=== PATIENT | male | born 1960 | race Caucasian/White ===

== ENCOUNTER 2022-01-04 03:08 | Day surgery (SDC) | payer BC, SELFPAY ==
[2021-12-15 10:56] VITALS: BMI 45.7
[2022-01-04 06:25] VITALS: BMI 49.8
[2022-01-04 06:29] VITALS: BP 178/89; PULSE 74; RESP 18; TEMP 36.4; O2SAT 98
[2022-01-04] MEDS: LACTATED RINGERS 1,000 ML 150 ML IV CONT (06:44)
--- NOTE | 2022-01-04 06:45 | P.PNAN_ITS ---
Anes - Initial Pre Proc Eval Procedure: Operation Date: 01/04/22 07:30 Proposed Procedures p Screening Colonoscopy - Alex Pavon MD Date/Time: 01/04/22 06:45 Surgeon: Alex Pavon MD Pre Op Diagnosis: hx of colon polyps, neoplasm screening Patient Data Age: 61 Gender: M Height: 1.73 m Weight: 148.9 kg Last Vital Signs Temp 36.4 C L 01/04/22 06:29 Pulse 74 01/04/22 06:29 Resp 18 01/04/22 06:29 BP 178/89 H 01/04/22 06:29 Pulse Ox 98 01/04/22 06:29 O2 Del Method Room Air 01/04/22 06:29 Allergies Allergy/AdvReac Type Severity Reaction Status Date / Time No Known Allergies Allergy Verified 01/04/22 06:24 Home Medications Medication Instructions Recorded Confirmed Type lisinopril 20 1 tablet PO DAILY 12/15/21 01/04/22 History mg-hydrochlorothiazide 25 mg tablet Patient hx anesthesia problems: none Family hx anesthesia problems: none Results Review: All pre-operative results and documents have been reviewed as part of the pre- operative evaluation. [facility] Past Medical History Medical History (Updated 01/04/22 @ 06:46 by Saul Carter DO) Hypertension Social History Social History Smoking status: Former smoker Tobacco type: cigarettes Substance use type: does not use Living arrangements: with family Spiritual care concerns: No Anes - Eval Final PreProcedure Day of Procedure 01/04/22 06:45 Patient weight: morbidly obese Heart: regular rate and rhythm Lungs: clear to auscultation Airway: Mallampati scale class III Neurological: alert and oriented Last oral intake: >/= 8 hours ASA classification: III Emergent: no Anesthetic plan: proceed Anesthesia type and monitoring: general GIVS and standard monitoring Results Review: All pre-operative results and documents have been reviewed as part of the pre- operative evaluation. Informed Consent: The patient's anesthetic plan and its attendant risks and benefits were discussed with the patient/family/POA. Questions were solicited and answers provided to the satisfaction of the patient/family/POA.
--- NOTE | 2022-01-04 07:55 | PM.IMHP ---
H&P: HPI History of Present Illness Date/Time: 01/04/22 07:55 Chief Complaint: History of colon polyps Narrative: this is a 61-year-old white male patient who has a history of large colon polyps in the past. Patient presents today for surveillance colonoscopy. Patient reports his current weight appetite bowel movements are normal. He denies abdominal pain. He has had no bleeding. Family history is noncontributory. Review of Systems Review of Systems: Review of systems noncontributory. [facility] Past Medical History Medical History (Updated 01/04/22 @ 07:57 by Alex Pavon MD) Hypertension Social History Social History Smoking status: Former smoker Tobacco type: cigarettes Substance use type: does not use Living arrangements: with family Spiritual care concerns: No Meds Home Medications and Allergies Home Medications Medication Instructions Recorded Confirmed Type lisinopril 20 1 tablet PO DAILY 12/15/21 01/04/22 History mg-hydrochlorothiazide 25 mg tablet Allergies Allergy/AdvReac Type Severity Reaction Status Date / Time No Known Allergies Allergy Verified 01/04/22 06:24 Vital Signs Vital Signs - 24 hr 01/04/22 06:29 Temperature 97.5 F L Pulse Rate 74 Respiratory Rate 18 Blood Pressure 178/89 H Pulse Oximetry 98 Oxygen Delivery Room Air Exam Narrative: Physical exam reveals patient be alert. Vital signs stable. HEENT exam is unremarkable. Patient is anicteric. Lungs are clear to auscultation and percussion. Heart is without murmur or extra sounds. Abdominal exam Is obese. bowel sounds are present soft nontender with no organomegaly. Digital external rectal exam is normal. Assessment and Plan Assessment and plan (1) History of colon polyps: Code(s): Z86.010 - Personal history of colonic polyps Status: Acute Assessment and Plan: Patient has a history of large colon polyps in the past. Plan for colonoscopy now and at 2-3 year intervals in the future. Further recommendations will be given after endoscopy. (2) Obesity (BMI 30.0-34.9): Code(s): E66.9 - Obesity, unspecified Status: Acute Assessment and Plan: Weight loss with calorie restriction increase activity strongly encouraged.
[2022-01-04 07:58] VITALS: BP 129/68; PULSE 68; RESP 18; O2SAT 100
[2022-01-04 08:08] VITALS: BP 136/67; PULSE 66; RESP 16; O2SAT 98
[2022-01-04 08:18] VITALS: BP 141/76; PULSE 64; RESP 13; O2SAT 98
== END 2022-01-04 08:28 | disposition home or self-care (01) ==
PROVIDERS: PCP Family Medicine; Visit Provider Internal Medicine Gastroenterology
PROC: 0DJD8ZZ Inspection of Lower Intestinal Tract, Via Natural or Artificial Opening Endoscopic (ICD-10-PCS; CPT 45378; principal; 2022-01-04 07:30)
DX: Z12.11 Encounter for screening for malignant neoplasm of colon (principal); K57.30 Diverticulosis of large intestine without perforation or abscess without bleeding; D12.3 Benign neoplasm of transverse colon; K63.5 Polyp of colon; I10 Essential (primary) hypertension; E66.01 Morbid (severe) obesity due to excess calories; Z68.42 Body mass index [BMI] 45.0-49.9, adult
CPT/HCPCS: 45385; 88305; J2704; J7120

== ENCOUNTER 2023-12-31 08:03 | Emergency (ER) | payer BC, SELFPAY ==
[2023-12-31 08:09] VITALS: BP 146/80; PULSE 87; RESP 16; TEMP 36.8; O2SAT 99
[2023-12-31 08:22] LABS: EDUAAPPEAR Clear; EDUABILI Negative; EDUABLOOD Trace; EDUACOLOR1 Yellow; EDUAGLUCOSE Negative; EDUAKETONE 1+; EDUALEUKO Negative; EDUANITRATE Negative; EDUAPROTEIN 2+
--- NOTE | 2023-12-31 08:35 | ED.ABDPAIN ---
HPI - Abdominal Pain General Chief Complaint: Abdominal Pain Stated Complaint: Stomach Pain Time Seen by Provider: 12/31/23 08:16 Source: patient and RN notes reviewed Mode of arrival: ambulatory Limitations: no limitations History of Present Illness HPI narrative: Patient presents today complaining of mid to upper abdominal pain that started approximately 12 hours prior to arrival. Describes the pain as constant. Pain is worse when sitting or lying down and is better when he is up walking around. Denies nausea, vomiting, diarrhea, fever, urinary symptoms. Last bowel movement was 2 days ago. Currently rates his pain 7/10. Patient has tried some antacids without relief. Related Data Home Medications Medication Instructions Recorded Confirmed aspirin 81 mg tablet,delayed 81 mg PO DAILY 07/01/22 12/31/23 release (Adult Aspirin Regimen) flaxseed oil 1,000 mg capsule 1,000 mg PO DAILY 07/01/22 12/31/23 yyuzjtsq-aiia-iujtp acid 400 tablet PO 07/01/22 07/11/23 mcg-lycopene 600 mcg-ginkgo 120 mg tablet (One Daily For Men 50 Plus Adv) inulin 2 gram chewable tablet 4 g PO DAILY 07/11/23 07/11/23 (Fiber Gummies) Allergies Allergy/AdvReac Type Severity Reaction Status Date / Time No Known Allergies Allergy Verified 12/31/23 08:27 Review of Systems Review of Systems: CONSTITUTIONAL: Denies body aches, fever, chills, or sweats. EYES: Denies visual changes, redness, or discharge. ENT: Denies rhinorrhea, congestion, sore throat, or otalgia. CARDIOVASCULAR: Denies chest pain, palpitations, or edema. RESPIRATORY: Denies cough or dyspnea. GASTROINTESTINAL: Denies nausea, vomiting, or diarrhea.+ abdominal pain GENITOURINARY: Denies dysuria or hematuria. SKIN: Denies rash, itching, or wounds. MUSCULOSKELETAL: Denies back pain, joint pain, or myalgia. NEUROLOGIC: Denies headache, numbness, tingling, or weakness. PSYCH: Denies depression or anxiety. [facility] Past Medical History Medical History Hypertension Morbid (severe) obesity due to excess calories Prediabetes Family History Family History Father , ager 68, of complications of pneumonia. Had laryngeal cancer. Heart disease Diabetes mellitus Mother , age 62 of lung cancer No problems noted. Grandparent , in his 80s of heart disease No problems noted. Social History Social History Smoking status: Former smoker Tobacco type: cigarettes Alcohol intake: never Substance use: never Substance use type: does not use Lack of Transportation: No Lack of Food: Never True Current Housing: I Have Housing Concerned About Future Housing: No Difficulty Paying Gas/Electric Bills: No Difficulty Paying for Meds: No Currently Unemployed: No Education: Trade/Vocational Certificate Difficulty w/ Childcare or Family Care: No Living arrangements: with family Occupation/Education: occupation Gender identity (if verbalized by the patient): Male Sexual Orientation (if Verbalized by the Patient): Straight or Heterosexual Spiritual care concerns: No Comments At time of signature, I have reviewed and agree with nursing past medical, surgical, social and family history unless otherwise noted. Please see nursing chart for further information. There is no relevant family history pertinent to the presenting complaint Exam Narrative: GENERAL: Well-appearing, well-nourished, and in no acute distress. HEAD: Normocephalic, atraumatic. EYES: EOMI. No redness or drainage. Conjunctivae normal. ENT: Mucous membranes pink and moist. NECK: Normal AROM. CHEST: No respiratory distress. Clear to auscultation. HEART: Regular rate and rhythm. No murmur appreciated. Normal peripheral pulses. ABDOMEN:
== END 2023-12-31 08:51 | disposition short-term general hospital (02) ==
PROVIDERS: Emergency Provider Nurse Practitioner; PCP Family Medicine
DX: R10.10 Upper abdominal pain, unspecified (principal); Z87.891 Personal history of nicotine dependence; I10 Essential (primary) hypertension; R73.03 Prediabetes; E66.01 Morbid (severe) obesity due to excess calories; Z68.42 Body mass index [BMI] 45.0-49.9, adult; Z79.82 Long term (current) use of aspirin
CPT/HCPCS: 81003; 99213; G0463

== ENCOUNTER 2023-12-31 08:58 | Emergency (ER) | payer BC, SELFPAY ==
[2023-12-31] VITALS (17 sets, daily range): BP systolic 139–201; BP diastolic 76–97; PULSE 78–90; RESP 14–19; TEMP 36.6; O2SAT 93–100
--- NOTE | ~2023-12-31 | US_ITS ---
EXAMINATION: US right upper quadrant DATE: 12/31/2023 09:52 INDICATION: Abdominal pain. TECHNIQUE: Multiple grayscale and Doppler ultrasound images of the abdomen were obtained. COMPARISON: None FINDINGS: The visualized portions of the head and body of the pancreas are normal. There is diffuse h epatic steatosis. There is normal flow in main portal vein. The gallbladder is normal in size and con tains sludge. No visible gallstones or gallbladder wall thickening. There is no sonographic Mehta's sign. The common duct is mildly dilated to 7 mm. IMPRESSION: 1. Diffuse hepatic steatosis. 2. Mildly dilated common duct. Reviewed, dictated and finalized at location A.
--- NOTE | ~2023-12-31 | CT_ITS ---
EXAMINATION: CT abdomen pelvis w con DATE: 12/31/2023 10:35 INDICATION: Right abdominal pain. TECHNIQUE: Computed tomography (CT) of the abdomen and pelvis was performed with 100 mL Omnipaque 350 intravenous contrast. Automated exposure control and iterative reconstruction technique were employe d. The dose-length product was 1692.10 mGy-cm. COMPARISON: None. FINDINGS: The visualized portions of the lung bases demonstrate mild atelectasis. There is a pneumato elizabeth in left lower lobe. No pleural effusion. The heart size is normal. There are coronary artery ortiz cifications. No pericardial effusion. There is a 13 mm cyst in the liver. The gallbladder is distende d with surrounding fat stranding. The common duct is normal in caliber. The spleen, pancreas, adrenal glands, and left kidney are normal. There is a 4 mm stone in right kidney. The prostate is mildly en larged. There is diverticulosis of the colon without evidence of diverticulitis. The appendix is norm al. There are no dilated loops of bowel. There are no pathologically enlarged lymph nodes. Aortic ath erosclerosis is noted. There is no free intraperitoneal fluid. There is an umbilical hernia containin g fat. There is mild thoracic spondylosis and moderate lumbar spondylosis. IMPRESSION: 1. Acute cholecystitis. 2. Umbilical hernia containing fat. Reviewed, dictated and finalized at location A.
[2023-12-31] MEDS: ONDANSETRON INJ 4 MG/2 ML VIAL IV PUSH (09:23)
[2023-12-31] MEDS: MORPHINE SULFATE (*CRX) 4 MG/ML INJ IV PUSH (09:23)
[2023-12-31 09:39] LABS: Basophils Percent Auto 0.3 % (0.2-1.2); Eosinophils Percent Auto 0.1 % (0-4.4); Hematocrit 41.4 % (42.0-52.0); Hemoglobin 13.7 g/dL (14.0-18.0); Immature Granulocyte Absolute 0.07 K/mm3 (0.00-0.031); Immature Granulocyte Percent A 0.5 % (0-0.5); Lymphocytes Absolute Auto 1.07 K/mm3 (0.9-3.2); Lymphocytes Percent Auto 7.8 % (18.3-44.2); Mean Corpuscular HGB Conc 33.1 g/dl (32-36); Mean Corpuscular Hemoglobin 28.6 pg (26-34); Mean Corpuscular Volume 86.4 fl (80-100); Mean Platelet Volume 10.4 fl (7.4-10.4); Monocytes Absolute Auto 1.2 K/mm3 (0.1-0.6); Monocytes Percent Auto 8.4 % (2.6-8.5); Neutrophils Absolute Auto 11.4 K/mm3 (1.3-6.7); Neutrophils Percent Auto 82.9 % (45.5-73.1); Platelet Count Result 241 k/mm3 (150-375); Red Blood Count 4.79 M/mm3 (4.6-6.20); Red Cell Distribution Width 13.2 % (11.5-14.5); White Blood Count 13.8 K/mm3 (4.5-10.0)
[2023-12-31 09:55] LABS: Alanine Aminotransferase 28 U/L (6-50); Albumin Level 4.7 g/dL (3.5-5.1); Alkaline Phosphatase 77 U/L (38-126); Anion Gap 10 mmol/L (4-12); Aspartate Amino Transferase 27 U/L (17-59); Bilirubin,Total 0.8 mg/dL (0.2-1.3); Blood Urea Nitrogen 12 mg/dL (9-20); Calcium 9.6 mg/dL (8.4-10.2); Carbon Dioxide 28 mmol/L (22-30); Chloride 95 mmol/L (98-107); Estimated CRCL calculation 114 ml/min; Estimated Glomerular Filt Rate > 60; Glucose 133 mg/dL (65-110); Lipase 39 U/L (23-300); Potassium 3.9 mmol/L (3.4-5.0); Sodium 133 mmol/L (137-145)
--- NOTE | 2023-12-31 10:14 | ED.ABDPAIN ---
HPI - Abdominal Pain General Chief Complaint: Abdominal Pain Stated Complaint: ABD PAIN Time Seen by Provider: 12/31/23 09:05 History of Present Illness HPI narrative: Patient is a 63-year-old male who presents ER with abdominal pain for the last 5 days. Aching and sharp. Mainly in the upper abdomen but moves down to the right side. No nausea or vomiting. No diarrhea. No history of diverticulitis or cholecystitis. Referred from urgent care. No urinary symptoms. Denies alleviating factors. Related Data Home Medications Medication Instructions Recorded Confirmed aspirin 81 mg tablet,delayed 81 mg PO DAILY 07/01/22 12/31/23 release (Adult Aspirin Regimen) flaxseed oil 1,000 mg capsule 1,000 mg PO DAILY 07/01/22 12/31/23 xmsanzvs-gdpp-ytbjh acid 400 tablet PO 07/01/22 07/11/23 mcg-lycopene 600 mcg-ginkgo 120 mg tablet (One Daily For Men 50 Plus Adv) inulin 2 gram chewable tablet 4 g PO DAILY 07/11/23 07/11/23 (Fiber Gummies) Allergies Allergy/AdvReac Type Severity Reaction Status Date / Time No Known Allergies Allergy Verified 12/31/23 08:27 Review of Systems Review of Systems: All systems reviewed & are unremarkable except as noted in HPI and below Constitutional: Constitutional: Reports no additional constitutional complaints ENT: Reports system reviewed and no additional complaints, except as documented Cardiovascular: Cardiovascular: Reports no additional cardiovascular complaints Respiratory: Respiratory: Reports no additional respiratory complaints Gastrointestinal: Gastrointestinal: Reports abdominal pain, Denies bloating, Denies constipation, Denies nausea and Denies vomiting Musculoskeletal: Musculoskeletal: Reports no additional musculoskeletal complaints [facility] Past Medical History Medical History Hypertension Morbid (severe) obesity due to excess calories Prediabetes Family History Family History Father , ager 68, of complications of pneumonia. Had laryngeal cancer. Heart disease Diabetes mellitus Mother , age 62 of lung cancer No problems noted. Grandparent , in his 80s of heart disease No problems noted. Social History Social History Smoking status: Former smoker Tobacco type: cigarettes Alcohol intake: never Substance use: never Substance use type: does not use Lack of Transportation: No Lack of Food: Never True Current Housing: I Have Housing Concerned About Future Housing: No Difficulty Paying Gas/Electric Bills: No Difficulty Paying for Meds: No Currently Unemployed: No Education: Trade/Vocational Certificate Difficulty w/ Childcare or Family Care: No Living arrangements: with family Occupation/Education: occupation Gender identity (if verbalized by the patient): Male Sexual Orientation (if Verbalized by the Patient): Straight or Heterosexual Spiritual care concerns: No Exam Narrative: GENERAL: Well-appearing, morbidly obese, and in no acute distress. HEAD: Normocephalic, atraumatic. ENT: Mucous membranes moist. NECK: Supple. CHEST: Clear to auscultation. No respiratory distress. HEART: Regular rate and rhythm. Normal peripheral pulses. ABDOMEN: Soft, TTP to the RUQ/RLQ, protuberant abdomen. EXTREMITIES: Normal range of motion. No edema. SKIN: Warm, dry, no rash. NEURO: Alert and oriented x3. PSYCH: Normal mood and affect. Course Course Emergency Course: Pain improved with morphine. Patient informed results. General surgery has seen the patient at the bedside. Patient feels comfortable with discharge home with oral antibiotics and pain/nausea control. Return precautions discussed. Vital Signs Vital signs: Vital Signs Temperature 97.9 F 12/31/23 09:07 Pulse Rate 90
--- NOTE | 2023-12-31 11:37 | PM.CNGS ---
Assessment and Plan Assessment and plan (1) Acute cholecystitis: Code(s): K81.0 - Acute cholecystitis Status: Acute Assessment and Plan: exam improved after pain medication, after long discussion with patient he would like to go home with p.o. antibiotics and analgesia, low-fat diet, will need to set up urgent interval cholecystectomy as outpatient History of Present Illness Consult details Consult date: 12/31/23 Reason for consult: abdominal pain Requesting physician: Santiago De eJsus MD Narrative: The patient is a 63-year-old male presenting to the emergency department complaining of severe upper abdominal pain, right greater left. Patient reports pain been progressively worsening the last week or so. The patient reports associated nausea and bloating. The patient also describes a decreased appetite over this time span. The patient denies previous similar episodes. Workup in the emergency department, including imaging, is significant for acute cholecystitis. Review of Systems Review of Systems: All systems reviewed & are unremarkable except as noted in HPI and below PMFSH Past Medical History Medical History Hypertension Morbid (severe) obesity due to excess calories Prediabetes Family History Family History Father , ager 68, of complications of pneumonia. Had laryngeal cancer. Heart disease Diabetes mellitus Mother , age 62 of lung cancer No problems noted. Grandparent , in his 80s of heart disease No problems noted. Social History Social History Smoking status: Former smoker Tobacco type: cigarettes Alcohol intake: never Substance use: never Substance use type: does not use Lack of Transportation: No Lack of Food: Never True Current Housing: I Have Housing Concerned About Future Housing: No Difficulty Paying Gas/Electric Bills: No Difficulty Paying for Meds: No Currently Unemployed: No Education: Trade/Vocational Certificate Difficulty w/ Childcare or Family Care: No Living arrangements: with family Occupation/Education: occupation Gender identity (if verbalized by the patient): Male Sexual Orientation (if Verbalized by the Patient): Straight or Heterosexual Spiritual care concerns: No Meds Home Medications and Allergies Home Medications Medication Instructions Recorded Confirmed Type aspirin 81 mg tablet,delayed 81 mg PO DAILY 07/01/22 12/31/23 History release (Adult Aspirin Regimen) flaxseed oil 1,000 mg capsule 1,000 mg PO DAILY 07/01/22 12/31/23 History bndrbcpd-skej-iwmgh acid 400 tablet PO 07/01/22 07/11/23 History mcg-lycopene 600 mcg-ginkgo 120 mg tablet (One Daily For Men 50 Plus Adv) inulin 2 gram chewable tablet 4 g PO DAILY 07/11/23 07/11/23 History (Fiber Gummies) lisinopril 20 1 tablet PO DAILY #90 tabs 07/11/23 12/31/23 Rx mg-hydrochlorothiazide 25 mg tablet Allergies Allergy/AdvReac Type Severity Reaction Status Date / Time No Known Allergies Allergy Verified 12/31/23 08:27 Vital Signs Vital Signs - 24 hr 12/31/23 09:07 12/31/23 10:09 12/31/23 10:57 Temperature 36.6 C Pulse Rate 90 89 79 Respiratory Rate 18 14 19 Blood Pressure 201/97 H 139/79 155/85 H Pulse Oximetry 97 99 99 Exam Const: General: cooperative, comfortable, no acute distress and obese HENMT: Head: normal to inspection, normocephalic and atraumatic Eyes: General: appearance normal, both eyes and all related structures Neck: Neck: normal visual inspection, full ROM and no lymphadenopathy Resp: Auscultation: clear to auscultation bilaterally Cardio: Rate: regular rate Rhythm: regular rhythm GI: Inspection: normal to inspection, distended and obesity GI Palp: Yes abdominal tenderne
== END 2023-12-31 12:28 | disposition home or self-care (01) ==
PROVIDERS: Emergency Provider Emergency Medicine; PCP Family Medicine
DX: K81.0 Acute cholecystitis (principal); I10 Essential (primary) hypertension; Z79.82 Long term (current) use of aspirin; Z87.891 Personal history of nicotine dependence
CPT/HCPCS: 36415; 74177; 76705; 80053; 81003; 83690; 85025; 96374; 96375; 99284; J2270; J2405; Q9967

== ENCOUNTER 2024-01-26 10:30 | Outpatient (CLI) | payer BC, SELFPAY ==
--- NOTE | 2024-01-26 10:49 | ECG_ITS ---
Test Date: 2024-01-26 11:07:56 Measurements Intervals [place] Rate: 67 P: 11 MN: 187 QRS: 11 QRSD: 90 T: 31 QT: 379 QTc: 401 Interpretive Statements SINUS RHYTHM NONSPECIFIC T-WAVE ABNORMALITY ABNORMAL ECG WARNING: DATA QUALITY MAY AFFECT INTERPRETATION No previous ECG available for comparison Electronically Signed On 01-27-2024 10:57:04 CDT by Chuckie Nugent M.D.
[2024-01-26 11:33] LABS: Amylase 55 U/L (30-110)
== END 2024-01-26 10:31 | disposition home or self-care (01) ==
PROVIDERS: PCP Family Medicine; Visit Provider Surgery
DX: K81.0 Acute cholecystitis (principal); I10 Essential (primary) hypertension; Z01.818 Encounter for other preprocedural examination; R94.31 Abnormal electrocardiogram [ECG] [EKG]
CPT/HCPCS: 36415; 82150; 93005

== ENCOUNTER 2024-01-30 01:08 | Day surgery (SDC) | payer BC, SELFPAY ==
[2024-01-25 09:24] VITALS: BMI 46.4
--- NOTE | 2024-01-25 09:25 | PC.NURSE ---
Report to the Outpatient Waiting Room, entrance under the green pavilion located off [facility], at time _0600_ on date _[id number]_. Planned Procedure Time: _0730_. Time changes happen often and if your time is changed the preop area will call you the afternoon before. - You and your visitor will be asked to self-screen and do not enter if you have any COVID symptoms. - A mask is optional within the hospital at this time. Patients may have clear liquids (water, carbonated beverages, clear teas, apple juice) until 3 hours prior to surgery with a maximum of 20 ounces. - No food from midnight until time of surgery Take the following medications with a SIP of water the morning of surgery: None DO NOT STOP ANY OF YOUR OTHER PRESCRIPTION MEDICATIONS PRIOR TO SURGERY ?EXCEPT THE FOLLOWING Medications to discontinue per physician Multivitamin and flaxseed oil. Date to take last [id number] Please no make-up, nail congolese, hairspray, perfume, deodorant, or body powder the day of surgery. No jewelry (including any body piercings) or valuables the day of surgery, leave them at home. Please take a shower or bath the night before, or the morning of, surgery with an antibacterial soap. Wear comfortable, loose fitting clothing. - Jewelry must be removed prior to entering the operating room. Rings and piercings that are not removed may be cut off. - The hospital will not accept responsibility for valuables. - Please leave all valuables, including medications, at home the day of surgery. If you are going home after surgery, a licensed electric truck driver must drive you home. - NO public transportation without another adult if you receive anesthesia. - We recommend that an adult stay with you for 24 hours following discharge. - We also recommend that you do not drive, make important decision, drink alcoholic beverages, or take any drugs that were not prescribed by your health care provider for at least 24 hours after your discharge time. Follow any additional instructions given to you from your surgeon. If you or anyone in your household have experienced Covid symptoms in the past week, please notify your surgeon or the nurse liaison at the phone number below for possible testing. Telephone instructions given to __Gary___and asked if any additional questions and then verbalized understanding. Patient advised to call surgeon office or pre surgery nurse liaison [phone] if any additional questions.
[2024-01-30] VITALS (7 sets, daily range): BP systolic 147–174; BP diastolic 72–95; PULSE 68–80; RESP 12–18; TEMP 36.7; O2SAT 97–100
[2024-01-30] MEDS: LACTATED RINGERS 1,000 ML 30 ML IV CONT ×2 (06:45→08:43)
[2024-01-30] MEDS: ACETAMINOPHEN 500 MG TABLET 1000 MG PO (06:51)
[2024-01-30] MEDS: KETOROLAC 15 MG/ML VIAL (*BKC) IV PUSH (06:51)
--- NOTE | 2024-01-30 07:18 | WPDANESEPPF ---
Anes - Initial Pre Proc Eval Procedure: Operation Date: 01/30/24 07:30 Proposed Procedures p Laparoscopic Cholecystectomy - Manisha Valdivia MD Date/Time: 01/30/24 07:18 Surgeon: Manisha Valdivia MD Pre Op Diagnosis: Acute Cholecystitis Patient Data Age: 63 Gender: M Height: 1.73 m Weight: 136.9 kg Last Vital Signs Temp 98.1 F 01/30/24 06:46 Pulse 74 01/30/24 06:46 BP 172/82 H 01/30/24 06:46 Pulse Ox 97 01/30/24 06:46 O2 Del Method Room Air 01/30/24 06:46 Allergies Allergy/AdvReac Type Severity Reaction Status Date / Time No Known Allergies Allergy Verified 01/30/24 06:42 Home Medications Medication Instructions Recorded Confirmed Type aspirin 81 mg tablet,delayed 81 mg PO DAILY 07/01/22 01/25/24 History release (Adult Aspirin Regimen) flaxseed oil 1,000 mg capsule 1,000 mg PO DAILY 07/01/22 01/25/24 History bzihvlqr-bxxw-smiyr acid 400 1 tablet PO DAILY 07/01/22 01/25/24 History mcg-lycopene 600 mcg-ginkgo 120 mg tablet (One Daily For Men 50 Plus Adv) inulin 2 gram chewable tablet 4 g PO DAILY 07/11/23 01/25/24 History (Fiber Gummies) lisinopril 20 1 tablet PO DAILY #90 tabs 01/10/24 01/25/24 Rx mg-hydrochlorothiazide 25 mg tablet Patient hx anesthesia problems: none Family hx anesthesia problems: none Results Review: All pre-operative results and documents have been reviewed as part of the pre-operative evaluation. [facility] Past Medical History Medical History Hypertension Morbid (severe) obesity due to excess calories Prediabetes Family History Family History Father , ager 68, of complications of pneumonia. Had laryngeal cancer. Heart disease Diabetes mellitus Mother , age 62 of lung cancer No problems noted. Grandparent , in his 80s of heart disease No problems noted. Social History Social History (Reviewed 01/18/24 @ 09:02 by BENSON Clancy Smoking packs per day: 0.75 Smoking cigarettes per day: 15.0 Years smoked: 15 Smoking pack-years: 11.25 Smoking status: Former smoker Tobacco type: cigarettes Smoking end date: 01/24/95 Alcohol intake: never Substance use: never Substance use type: does not use Do You Feel Safe in your Home?: Yes Lack of Transportation: No Lack of Food: Never True Current Housing: I Have Housing Concerned About Future Housing: No Difficulty Paying Gas/Electric Bills: No Difficulty Paying for Meds: No Currently Unemployed: No Education: Trade/Vocational Certificate Difficulty w/ Childcare or Family Care: No Living arrangements: with family Occupation/Education: occupation Gender identity (if verbalized by the patient): Male Sexual Orientation (if Verbalized by the Patient): Straight or Heterosexual Spiritual care concerns: No Anes - Eval Final PreProcedure Day of Procedure 01/30/24 07:18 Patient weight: morbidly obese Heart: regular rate and rhythm Lungs: clear to auscultation Airway: Mallampati scale class III Neurological: alert and oriented Last oral intake: >/= 8 hours ASA classification: III Emergent: no Anesthetic plan: proceed Anesthesia type and monitoring: general ETT and standard monitoring Results Review: All pre-operative results and documents have been reviewed as part of the pre-operative evaluation. Informed Consent: The patient's anesthetic plan and its attendant risks and benefits were discussed with the patient/family/POA. Questions were solicited and answers provided to the satisfaction of the patient/family/POA.
--- NOTE | 2024-01-30 07:20 | WPDHPUPDATE1 ---
History and Physical Update Update Date/Time: 01/30/24 07:20 History and Physical has been reviewed, including an updated exam of the patient. There are NO changes in the patient's condition. Risks, benefits, and alternatives have been discussed and questions answered. Patient agrees to proceed with procedure.
[2024-01-30] MEDS: ceFAZolin 3 GM/D5W 100 ML 100 ML IVPB (07:28)
[2024-01-30] MEDS: BUPIVACAINE/EPINEPHRINE 0.5% 10 ML VIAL 30 ML INFILTRATE (08:04)
--- NOTE | 2024-01-30 08:36 | W.PM.PROC2 ---
Procedure Note - Detailed Date of Procedure 01/30/24 Pre-op Diagnosis Acute Cholecystitis Post-op Diagnosis Same Procedure Performed Laparoscopic cholecystectomy Surgeon Manisha Valdivia MD Anesthesia General Indications 63-year-old male presented to the emergency department complaining of severe postprandial right upper quadrant abdominal pain associated with nausea and vomiting. Workup including imaging significant for cholecystitis, cholelithiasis. Pt initially sent home c po abx, low fat diet. Pt now here for interval cholecystectomy. Findings Cholecystitis with cholelithiasis Description of Procedure The patient was taken to the operating room placed in the supine position. After adequate induction of general anesthesia, the patient was prepped and draped in normal sterile fashion. A time-out was then performed to verify the patient's identity as well as the procedure being performed. I then made a 5 mm incision in the infraumbilical region. Through this, a Veress needle was placed into the peritoneal cavity and CO2 gas was then insufflated. After adequate pneumoperitoneum was achieved, the Veress needle was removed and a 5 mm optiview trocar was placed through this incision under direct visualization. I then placed the laparoscope through this trocar site and under direct visualization placed a further 12 mm subxiphoid port as well as 2 additional 5 mm ports in the right upper abdomen. The gallbladder was then identified and was noted to be inflamed, distended, and full of gallstones. I was able to place a grasper at the dome of the gallbladder and this was retracted anterior and cephalad up over the liver. A 2nd retractor was then placed at the infundibulum and retracted laterally, this allowed visualization of the triangle of Calot. I then was able to visualize the cystic duct in its entirety from its proximal insertion into the gallbladder, to its distal junction with the common hepatic/common bile duct junction. At this point, I carefully skeletonized the proximal cystic duct with the [place] dissector. I then clipped and transected the proximal cystic duct. Next I visualized the cystic artery. Again the artery was skeletonized, clipped, and transected. I then used the Bovie cautery to take down the peritoneal attachments of the gallbladder off the liver bed. This was somewhat difficult given the amount of inflammation in the posterior space. The gallbladder was also noted to be quite intrahepatic. Once the gallbladder specimen was completely detached, an endo-pouch was placed through the 12 mm port site. I then placed the gallbladder specimen into the Endo pouch and removed the endo-pouch from the 12 mm port site. The specimen will now be sent to pathology for further review. I then copiously irrigated the right upper quadrant. Some mild oozing was noted in the liver bed and this was controlled with the bovie cautery. Hemostasis was noted in the liver bed, the clips were noted to be in good position on both the cystic duct stump and the cystic artery stump. No other pathology was noted in the right upper quadrant. I then moved the laparoscope to the subxiphoid port. No iatrogenic injury or other pathology was noted in the lower abdomen. I then closed the 12 mm trocar site under direct visualization using the Dudley cone and 0 Vicryl suture. At this point, the abdomen was desufflated and all ports removed. All port sites were then closed with 4.O Monocryl subcuticular sutures. Dermabond was placed on each incision. The patient tolerated the procedure well, was extubated in the operating room postoperative and will be transferred to the recovery room in stable condition Estimated Blood Loss 10 Drains No Packing No Pathology Yes Complications No immediate complications Condition Stable Disposition PACU [facility] Billing Surgery - Charge Forward: Surgery Billing
== END 2024-01-30 10:27 | disposition home or self-care (01) ==
PROVIDERS: PCP Family Medicine; Visit Provider Surgery
PROC: 0FT44ZZ Resection of Gallbladder, Percutaneous Endoscopic Approach (ICD-10-PCS; CPT 47562; principal; 2024-01-30 07:30)
DX: K80.00 Calculus of gallbladder with acute cholecystitis without obstruction (principal); I10 Essential (primary) hypertension; R73.03 Prediabetes; E66.01 Morbid (severe) obesity due to excess calories; Z68.42 Body mass index [BMI] 45.0-49.9, adult; Z79.82 Long term (current) use of aspirin; Z87.891 Personal history of nicotine dependence; Z80.1 Family history of malignant neoplasm of trachea, bronchus and lung; Z80.2 Family history of malignant neoplasm of other respiratory and intrathoracic organs; Z82.49 Family history of ischemic heart disease and other diseases of the circulatory system
CPT/HCPCS: 47562; 88304; A9270; J0330; J0690; J1100; J1170; J1885; J2250; J2405; J2704; J3010; J7030; J7120

== ENCOUNTER 2024-04-26 01:40 | Day surgery (SDC) | payer BC, SELFPAY ==
[2024-04-26 10:27] VITALS: BP 175/78; PULSE 76; RESP 20; TEMP 36.4; O2SAT 98; BMI 46.0
[2024-04-26] MEDS: LACTATED RINGERS 1,000 ML 150 ML IV CONT (10:50)
--- NOTE | 2024-04-26 11:44 | PM.IMHP ---
H&P: HPI History of Present Illness Date/Time: 04/26/24 11:44 Chief Complaint: History of colon polyps Narrative: The patient has a history of colonic polyps, the last colonoscopy was 3 years ago [facility] Past Medical History Medical History (Updated 02/14/24 @ 14:36 by Martha Velazquez [facility]) Hypertension Morbid (severe) obesity due to excess calories Prediabetes Surgical History Surgical History (Updated 02/14/24 @ 14:27 by Enma Padilla [facility]) Hx laparoscopic cholecystectomy 01/30/24 Dr Manisha Valdivia Family History Family History (Reviewed 02/14/24 @ 14:27 by Enma Padilla [facility]) Father , ager 68, of complications of pneumonia. Had laryngeal cancer. Heart disease Diabetes mellitus Mother , age 62 of lung cancer No problems noted. Grandparent , in his 80s of heart disease No problems noted. Social History Social History (Reviewed 02/14/24 @ 14:27 by Enma Padilla [facility]) Smoking packs per day: 0.75 Smoking cigarettes per day: 15.0 Years smoked: 15 Smoking pack-years: 11.25 Smoking status: Former smoker Tobacco type: cigarettes Smoking end date: 01/24/95 Alcohol intake: never Substance use: never Substance use type: does not use Do You Feel Safe in your Home?: Yes Lack of Transportation: No Lack of Food: Never True Current Housing: I Have Housing Concerned About Future Housing: No Difficulty Paying Gas/Electric Bills: No Difficulty Paying for Meds: No Currently Unemployed: No Education: Trade/Vocational Certificate Difficulty w/ Childcare or Family Care: No Living arrangements: with family Additional living arrangements comments: with Occupation/Education: occupation Gender identity (if verbalized by the patient): Male Sexual Orientation (if Verbalized by the Patient): Straight or Heterosexual Spiritual care concerns: No Meds Home Medications and Allergies Home Medications Medication Instructions Recorded Confirmed Type aspirin 81 mg tablet,delayed 81 mg PO DAILY 07/01/22 04/26/24 History release (Adult Aspirin Regimen) flaxseed oil 1,000 mg capsule 1,000 mg PO DAILY 07/01/22 04/26/24 History ktdlapbx-ffbx-xlqyg acid 400 1 tablet PO DAILY 07/01/22 04/26/24 History mcg-lycopene 600 mcg-ginkgo 120 mg tablet (One Daily For Men 50 Plus Adv) inulin 2 gram chewable tablet 4 g PO DAILY 07/11/23 04/26/24 History (Fiber Gummies) lisinopril 20 1 tablet PO DAILY #90 tabs 01/10/24 04/26/24 Rx mg-hydrochlorothiazide 25 mg tablet Allergies Allergy/AdvReac Type Severity Reaction Status Date / Time No Known Allergies Allergy Verified 04/26/24 10:34 Vital Signs Vital Signs - 24 hr 04/26/24 10:27 Temperature 97.6 F Pulse Rate 76 Respiratory Rate 20 Blood Pressure 175/78 H Pulse Oximetry 98 Oxygen Delivery Room Air Assessment and Plan Assessment and plan (1) History of colon polyps: Code(s): Z86.010 - Personal history of colon polyps Status: Acute Plan The patient is deemed a good candidate for the procedure. Consent signed. Will proceed.
--- NOTE | 2024-04-26 11:47 | WPDANESEPPF ---
Anes - Initial Pre Proc Eval Procedure: Operation Date: 04/26/24 11:30 Proposed Procedures p Screening Colonoscopy - Carlos Colin MD Date/Time: 04/26/24 11:47 Surgeon: Carlos Colin MD Pre Op Diagnosis: hx colon polyps Patient Data Age: 63 Gender: M Height: 1.73 m Weight: 137.2 kg Last Vital Signs Temp 36.4 C 04/26/24 10:27 Pulse 76 04/26/24 10:27 Resp 20 04/26/24 10:27 BP 175/78 H 04/26/24 10:27 Pulse Ox 98 04/26/24 10:27 O2 Del Method Room Air 04/26/24 10:27 Allergies Allergy/AdvReac Type Severity Reaction Status Date / Time No Known Allergies Allergy Verified 04/26/24 10:34 Home Medications Medication Instructions Recorded Confirmed Type aspirin 81 mg tablet,delayed 81 mg PO DAILY 07/01/22 04/26/24 History release (Adult Aspirin Regimen) flaxseed oil 1,000 mg capsule 1,000 mg PO DAILY 07/01/22 04/26/24 History ertulxjb-dvpk-nlffw acid 400 1 tablet PO DAILY 07/01/22 04/26/24 History mcg-lycopene 600 mcg-ginkgo 120 mg tablet (One Daily For Men 50 Plus Adv) inulin 2 gram chewable tablet 4 g PO DAILY 07/11/23 04/26/24 History (Fiber Gummies) lisinopril 20 1 tablet PO DAILY #90 tabs 01/10/24 04/26/24 Rx mg-hydrochlorothiazide 25 mg tablet Patient hx anesthesia problems: none Family hx anesthesia problems: none Results Review: All pre-operative results and documents have been reviewed as part of the pre-operative evaluation. [facility] Past Medical History Medical History Hypertension Morbid (severe) obesity due to excess calories Prediabetes Surgical History Surgical History (Updated 02/14/24 @ 14:27 by Enma Padilla CMA) Hx laparoscopic cholecystectomy 01/30/24 Dr Manisha Valdivia Family History Family History Father , ager 68, of complications of pneumonia. Had laryngeal cancer. Heart disease Diabetes mellitus Mother , age 62 of lung cancer No problems noted. Grandparent , in his 80s of heart disease No problems noted. Social History Social History (Reviewed 02/14/24 @ 14:27 by Enma Padilla [facility]) Smoking packs per day: 0.75 Smoking cigarettes per day: 15.0 Years smoked: 15 Smoking pack-years: 11.25 Smoking status: Former smoker Tobacco type: cigarettes Smoking end date: 01/24/95 Alcohol intake: never Substance use: never Substance use type: does not use Do You Feel Safe in your Home?: Yes Lack of Transportation: No Lack of Food: Never True Current Housing: I Have Housing Concerned About Future Housing: No Difficulty Paying Gas/Electric Bills: No Difficulty Paying for Meds: No Currently Unemployed: No Education: Trade/Vocational Certificate Difficulty w/ Childcare or Family Care: No Living arrangements: with family Additional living arrangements comments: with Occupation/Education: occupation Gender identity (if verbalized by the patient): Male Sexual Orientation (if Verbalized by the Patient): Straight or Heterosexual Spiritual care concerns: No Anes - Eval Final PreProcedure Day of Procedure 04/26/24 11:47 Patient weight: morbidly obese Heart: regular rate and rhythm Lungs: clear to auscultation Airway: Mallampati scale class III Neurological: alert and oriented Last oral intake: >/= 8 hours ASA classification: III Emergent: no Anesthetic plan: proceed Anesthesia type and monitoring: general GIVS and standard monitoring Results Review: All pre-operative results and documents have been reviewed as part of the pre-operative evaluation. Informed Consent: The patient's anesthetic plan and its attendant risks and benefits were discussed with the patient/family/POA. Questions were solicited and answers provided to the satisfaction of the patient/family/POA.
[2024-04-26 12:29] VITALS: BP 132/84; PULSE 74; RESP 24; O2SAT 100
[2024-04-26 12:39] VITALS: BP 134/82; PULSE 74; RESP 20; O2SAT 100
[2024-04-26 12:49] VITALS: BP 134/90; PULSE 70; RESP 22; O2SAT 100
[2024-04-26 12:59] VITALS: BP 143/89; PULSE 71; RESP 21; O2SAT 100
== END 2024-04-26 13:05 | disposition home or self-care (01) ==
PROVIDERS: PCP Family Medicine; Referring Provider Internal Medicine Gastroenterology; Visit Provider Internal Medicine Gastroenterology
PROC: 0DJD8ZZ Inspection of Lower Intestinal Tract, Via Natural or Artificial Opening Endoscopic (ICD-10-PCS; CPT 45378; principal; 2024-04-26 11:30)
DX: Z12.11 Encounter for screening for malignant neoplasm of colon (principal); K57.30 Diverticulosis of large intestine without perforation or abscess without bleeding; I10 Essential (primary) hypertension; R73.03 Prediabetes; E66.01 Morbid (severe) obesity due to excess calories; Z68.42 Body mass index [BMI] 45.0-49.9, adult; Z79.82 Long term (current) use of aspirin; Z98.890 Other specified postprocedural states; Z90.49 Acquired absence of other specified parts of digestive tract; Z87.891 Personal history of nicotine dependence; Z86.0100 Personal history of colon polyps, unspecified; Z80.2 Family history of malignant neoplasm of other respiratory and intrathoracic organs; Z80.1 Family history of malignant neoplasm of trachea, bronchus and lung; Z82.49 Family history of ischemic heart disease and other diseases of the circulatory system
CPT/HCPCS: 45378; J0330; J2003; J2704; J7120

== ENCOUNTER 2025-06-03 01:21 | Day surgery (SDC) | payer MEDICARE, SELFPAY ==
[2025-05-09 14:51] VITALS: BMI 46.3
--- NOTE | ~2025-06-03 | XR_ITS ---
EXAM/PROCEDURE: XR_ENEMABAC_CR HISTORY: incomplete colonoscopy COMPARISON: None available. TECHNIQUE: Standard technique for air contrast barium enema performed. Exam limited by significant redundancy in the sigmoid colon, and marginal success in extending contrast into the right hemicolon. CONTRAST: 2000 mL of thick barium. DAP: 733 Goodrich per square centimeter Number of images: 54 FLUOROSCOPY TIME: 6 minutes FINDINGS: Moderately severe diverticular disease present particularly in the sigmoid colon with no evidence of extravasation or contrast acute complication. Partial visualization of the cecum can be seen on images 25 and 26 with reflux of contrast into the appendix. No obvious mass seen. The remainder of the large bowel is unremarkable with several areas obscured due to single contrast effect. IMPRESSION: Very limited examination for identified subtle or small masses. The cecum is seen and no large mass is identified. Diverticular disease with no obvious acute complication. RECOMMENDATION: Correlate with follow-up screening colonoscopy; CT Colongraphy may also provide additional useful information. If barium enema is employed as screening modality, repeat exam in 2 years is recommended or sooner if clinically appropriate. Reviewed, dictated and finalized at location A. [facility] IMPRESSION: Very limited examination for identified subtle or small masses. The cecum is se en and no large mass is identified. Diverticular disease with no obvious acute complication. RECOMMENDATION: Correlate with follow-up screening colonoscopy; CT Colongraphy may also provide additional useful information. If barium enema is employed as screening modality, repeat exam in 2 years is recommended or sooner if clinical ly appropriate.
[2025-06-03 06:41] VITALS: BP 153/76; PULSE 81; RESP 18; TEMP 35.9; O2SAT 98; BMI 46.5
[2025-06-03] MEDS: LACTATED RINGERS 1,000 ML 150 ML IV CONT (06:57)
--- NOTE | 2025-06-03 07:05 | WPDANESEPPF ---
Anes - Initial Pre Proc Eval Procedure: Operation Date: 06/03/25 08:00 Proposed Procedures p Screening Colonoscopy - Carlos Colin MD Date/Time: 06/03/25 07:05 Surgeon: Carlos Colin MD Pre Op Diagnosis: Hx of adenomatous and serrated colon polyps Patient Data Age: 64 Gender: M Height: 1.73 m Weight: 138.8 kg Last Vital Signs Temp 35.9 C L 06/03/25 06:41 Pulse 81 06/03/25 06:41 Resp 18 06/03/25 06:41 BP 153/76 H 06/03/25 06:41 Pulse Ox 98 06/03/25 06:41 O2 Del Method Room Air 06/03/25 06:41 Allergies Allergy/AdvReac Type Severity Reaction Status Date / Time No Known Allergies Allergy Verified 06/03/25 06:40 Home Medications ?Medication ?Instructions ?Recorded ?Confirmed ?Type aspirin 81 mg tablet,delayed 81 mg PO DAILY 07/01/22 06/03/25 History release (Adult Aspirin Regimen) jutpfhtl-roek-slqtw acid 400 1 tablet PO DAILY 07/01/22 06/03/25 History mcg-lycopene 600 mcg-ginkgo 120 mg tablet (One Daily For Men 50 Plus Adv) spironolactone 25 mg tablet 25 mg PO DAILY #90 tabs 03/21/25 06/03/25 Rx lisinopril 20 1 tablet PO DAILY #90 tabs 05/22/25 06/03/25 Rx mg-hydrochlorothiazide 25 mg tablet Patient hx anesthesia problems: none Family hx anesthesia problems: none Results Review: All pre-operative results and documents have been reviewed as part of the pre-operative evaluation. [facility] Past Medical History Medical History (Updated 01/16/25 @ 09:58 by Boni Choi MD) Personal history of adenomatous and serrated colon polyps Prediabetes Morbid (severe) obesity due to excess calories Hypertension Surgical History Surgical History Hx laparoscopic cholecystectomy 01/30/24 Dr Manisha Valdivia Family History Family History Father , ager 68, of complications of pneumonia. Had laryngeal cancer. Heart disease Diabetes mellitus Mother , age 62 of lung cancer Lung cancer Grandparent , in his 80s of heart disease Heart disease Sibling History of colon surgery Social History Social History Smoking packs per day: 0.75 Smoking cigarettes per day: 15.0 Years smoked: 15 Smoking pack-years: 11.25 Smoking status: Never smoker Tobacco type: cigarettes Smoking end date: 01/24/95 Alcohol intake: never Drinks per week: 0 Alcohol use details: 1 or 2 drinks per year Substance use: never Substance use type: does not use Lack of Transportation: No Lack of Food: Never True Current Housing: I Have Housing Concerned About Future Housing: No Difficulty Paying Gas/Electric Bills: No Difficulty Paying for Meds: No Currently Unemployed: No Education: Trade/Vocational Certificate Difficulty w/ Childcare or Family Care: No Living arrangements: with family Additional living arrangements comments: with Occupation/Education: occupation Additional occupation/education comments: 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 Gender identity (if verbalized by the patient): Male Sexual Orientation (if Verbalized by the Patient): Straight or Heterosexual Spiritual care concerns: No Anes - Eval Final PreProcedure Day of Procedure 06/03/25 07:05 Patient weight: morbidly obese Heart: regular rate and rhythm Lungs: clear to auscultation Airway: Mallampati scale class II Neurological: alert and oriented Last oral intake: >/= 8 hours ASA classification: III Emergent: no Anesthetic plan: proceed Anesthesia type and monitoring: general GIVS and standard monitoring Results Review: All pre-operative results and documents have been reviewed as part of the pre-operative evaluation. Informed Consent: The patient's anesthetic plan and its attendant risks and benefits were discussed with the patient/family/POA. Questions were solicited and answers provided to the satisfaction of the patient/family/POA.
--- NOTE | 2025-06-03 07:52 | PM.IMHP2 ---
H&P: HPI History of Present Illness Date/Time: 06/03/25 07:52 Chief Complaint: History of colon polyps Narrative: The patient has a history of colonic polyps, the last colonoscopy was March 2024, however it was not clean and the patient had a respiratory decompensation. Review of Systems Review of Systems: All systems reviewed & are unremarkable except as noted in HPI and below PMFSH Past Medical History Medical History (Updated 01/16/25 @ 09:58 by Boni Choi MD) Personal history of adenomatous and serrated colon polyps Prediabetes Morbid (severe) obesity due to excess calories Hypertension Surgical History Surgical History Hx laparoscopic cholecystectomy 01/30/24 Dr Manisha Valdivia Family History Family History Father , ager 68, of complications of pneumonia. Had laryngeal cancer. Heart disease Diabetes mellitus Mother , age 62 of lung cancer Lung cancer Grandparent , in his 80s of heart disease Heart disease Sibling History of colon surgery Social History Social History Smoking packs per day: 0.75 Smoking cigarettes per day: 15.0 Years smoked: 15 Smoking pack-years: 11.25 Smoking status: Never smoker Tobacco type: cigarettes Smoking end date: 01/24/95 Alcohol intake: never Drinks per week: 0 Alcohol use details: 1 or 2 drinks per year Substance use: never Substance use type: does not use Lack of Transportation: No Lack of Food: Never True Current Housing: I Have Housing Concerned About Future Housing: No Difficulty Paying Gas/Electric Bills: No Difficulty Paying for Meds: No Currently Unemployed: No Education: Trade/Vocational Certificate Difficulty w/ Childcare or Family Care: No Living arrangements: with family Additional living arrangements comments: with Occupation/Education: occupation Additional occupation/education comments: 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 Gender identity (if verbalized by the patient): Male Sexual Orientation (if Verbalized by the Patient): Straight or Heterosexual Spiritual care concerns: No Meds Home Medications and Allergies Home Medications ?Medication ?Instructions ?Recorded ?Confirmed ?Type aspirin 81 mg tablet,delayed 81 mg PO DAILY 07/01/22 06/03/25 History release (Adult Aspirin Regimen) zbimybqq-ljrx-lkxyi acid 400 1 tablet PO DAILY 07/01/22 06/03/25 History mcg-lycopene 600 mcg-ginkgo 120 mg tablet (One Daily For Men 50 Plus Adv) spironolactone 25 mg tablet 25 mg PO DAILY #90 tabs 03/21/25 06/03/25 Rx lisinopril 20 1 tablet PO DAILY #90 tabs 05/22/25 06/03/25 Rx mg-hydrochlorothiazide 25 mg tablet Allergies Allergy/AdvReac Type Severity Reaction Status Date / Time No Known Allergies Allergy Verified 06/03/25 06:40 Vital Signs Vital Signs - 24 hr 06/03/25 06:41 Temperature 96.7 F L Pulse Rate 81 Respiratory Rate 18 Blood Pressure 153/76 H Pulse Oximetry 98 Oxygen Delivery Room Air Exam Const: General: cooperative and healthy appearing Resp: Effort & Inspection: normal respiratory effort and able to speak in complete sentences Auscultation: clear to auscultation bilaterally Cardio: Rate: regular rate Rhythm: regular rhythm GI: Inspection: normal to inspection GI Palp: No No hepatosplenomegaly present Auscultation: normal bowel sounds Rectal Exam: deferred Skin: General skin exam: normal color Psych: Appearance: grossly normal Mental Status: mental status grossly normal Assessment and Plan Assessment and plan (1) Personal history of adenomatous and serrated colon polyps: Code(s): Z86.0101 - Personal history of adenomatous and serrated colon polyps Status: Acute Assessment and Plan: The patient is deemed a good candidate for the procedure. Consent signed. Will proceed. Prior Studies I have reviewed the following patient records and this information was taken into consideration when formulating the assessment and plan.: previous labs, previous ER visits, previous hospitalizations and previous clinic visits
[2025-06-03] MEDS: SIMETHICONE ORAL SUSPENSION 20 MG/0.3 ML 30 ML BOTTLE 0.6 ML IRRIGATION (08:04)
[2025-06-03 08:30] VITALS: BP 105/79; PULSE 67; RESP 22; O2SAT 99
[2025-06-03 08:40] VITALS: BP 138/70; PULSE 68; RESP 22; O2SAT 99
[2025-06-03 08:50] VITALS: BP 138/70; PULSE 66; RESP 15; O2SAT 100
== END 2025-06-03 09:07 | disposition home or self-care (01) ==
PROVIDERS: PCP Family Medicine; Referring Provider Family Medicine; Visit Provider Internal Medicine Gastroenterology
PROC: 0DJD8ZZ Inspection of Lower Intestinal Tract, Via Natural or Artificial Opening Endoscopic (ICD-10-PCS; CPT 45378; principal; 2025-06-03 08:00)
DX: Z09 Encounter for follow-up examination after completed treatment for conditions other than malignant neoplasm (principal); K57.30 Diverticulosis of large intestine without perforation or abscess without bleeding; I10 Essential (primary) hypertension; R73.03 Prediabetes; E66.01 Morbid (severe) obesity due to excess calories; Z68.42 Body mass index [BMI] 45.0-49.9, adult; Z79.82 Long term (current) use of aspirin; Z90.49 Acquired absence of other specified parts of digestive tract; Z87.891 Personal history of nicotine dependence; Z86.0101 Personal history of adenomatous and serrated colon polyps; Z80.2 Family history of malignant neoplasm of other respiratory and intrathoracic organs; Z80.1 Family history of malignant neoplasm of trachea, bronchus and lung; Z82.49 Family history of ischemic heart disease and other diseases of the circulatory system
CPT/HCPCS: 45378; 74280; J2003; J2704; J7120